=== PATIENT | male | born 1995 | race Hispanic/Latino ===

== ENCOUNTER 2017-09-01 19:42 | Emergency (ER) | payer OTHER ==
[~2017-09-01] VITALS: Ht 165.1 cm; Wt 72.6 kg
[2017-09-01] MEDS ORDERED: ONDANSETRON HCL INJ 2 MG/ML VIAL IV STA (19:47)
[2017-09-01] MEDS ORDERED: SODIUM CHLORIDE 0.9% 1000ML 1,000 ML IV ONE (20:00)
[2017-09-01 20:10] LABS: BASOPHILS % 0.2 % (0.0-1.0); HEMATOCRIT 41.8 % (38.2-49.6); HEMOGLOBIN 14.9 g/dL (14.0-18.0); LYMPHOCYTES % 5.1 % (18.0-39.1); MEAN CORPUSCULAR HEMOGLOBIN 33.2 pg (28-32); MEAN CORPUSCULAR HGB CONC 35.6 g/dL (31-35); MEAN CORPUSCULAR VOLUME 93.1 fL (81-99); MONOCYTES # (AUTO) 1.6 (0.2-0.8); MONOCYTES % 8.2 % (4.4-11.3); NEUTROPHILS # (AUTO) 16.7 (2.1-6.9); NEUTROPHILS % 85.9 % (38.7-80.0); PLATELET COUNT 182 x10e3/uL (140-360); RED BLOOD COUNT 4.49 x10e6/uL (4.3-5.7); RED CELL DISTRIBUTION WIDTH 11.6 % (11.7-14.4)
[2017-09-01 20:29] LABS: ALANINE AMINOTRANSFERASE 21 IU/L (0-55); ALBUMIN 4.3 g/dL (3.5-5.0); ALBUMIN/GLOBULIN RATIO 1.3 (0.8-2.0); ALKALINE PHOSPHATASE 84 IU/L (40-150); ANION GAP 14.2 mmol/L (8-16); BLOOD UREA NITROGEN 9 mg/dL (7-26); BUN/CREATININE RATIO 8 (6-25); CALCIUM 9.1 mg/dL (8.4-10.2); CARBON DIOXIDE 22 mmol/L (22-29); CHLORIDE 103 mmol/L (98-107); CREATININE, SERUM 1.19 mg/dL (0.72-1.25); EST GLOMERULAR FILTRATION RATE > 60 ML/MIN (60-); GLUCOSE 137 mg/dL (74-118); POTASSIUM 3.2 mmol/L (3.5-5.1); SODIUM 136 mmol/L (136-145)
[2017-09-01 21:15] LABS: NEUTROPHILS % (MANUAL) 92 % (40-74)
[2017-09-01 21:16] LABS: LYMPHOCYTES % (MANUAL) 4 % (19-48); MONOCYTES % (MANUAL) 4 % (3.4-9.0); PLATELET ESTIMATE ADEQUATE; PLATELET MORPHOLOGY COMMENT NORMAL; RBC MORPHOLOGY COMMENT NORMAL
[2017-09-01 21:23] VITALS: BP 135/54
== END 2017-09-01 21:24 | disposition home or self-care (01) ==
LOC: ER 19:42
DX: R50.9 Fever, unspecified (principal); R11.2 Nausea with vomiting, unspecified; R19.7 Diarrhea, unspecified; R10.84 Generalized abdominal pain
CPT/HCPCS: 36415; 80053; 85025; 87400; 99284; J2405; J7030

== ENCOUNTER 2017-09-11 00:07 | Emergency (ER) | payer OTHER ==
[~2017-09-11] VITALS: Ht 165.1 cm; Wt 72.6 kg
--- OUTSIDE RECORDS SUMMARY | 2017-09-11 00:10 | XMS REPORT | Continuity of Care Document ---
Author Author [facility] Organization [facility] Address [address] [place] [address] Phone Unavailable Care Team Providers Care Framing Manager Name Role Phone NO, PCP PCP Unavailable Advance Directives No advance directive information available. Problems No problem information available. Medications No medication information available. Social History Smoking Status Start Date Stop Date Current every day smoker Hospital Discharge Instructions No hospital discharge instruction information available. Plan of Care Discharge Date 09/01/17 9:24pm Disposition HOME, SELF-CARE Condition at Discharge Stable Instructions/Education Provided Vomiting - Adult Forms Provided Work/School Excuse Prescriptions See Medication Section Referrals JOVANI COSME MD Address: [address] [place] [id number] Additional Instructions/Education FOLLOW UP WITH YOUR PRIMARY CARE DOCTOR IN 3 DAYS ADMINISTER MEDICATIONS ORDERED BY DOCTOR DRINK PLENTY OF FLUIDS - CLEAR LIQUIDS ONLY FOR THE NEXT 24 HOURS - ADVANCE DIET TOLERATED RETURN IF SYMPTOMS WORSEN Functional Status No functional status information available. Allergies, Adverse Reactions, Alerts No known allergies. Immunizations No immunization information available. Vital Signs Acute Vital Signs Vital Response Date/Time Temperature (Fahrenheit) 98.7 degrees F (97.6 - 99.5) 09/01/2017 9:23pm Pulse Pulse Rate (adult) 74 bpm (60 - 90) 09/01/2017 9:23pm Respiratory Rate 18 bpm (12 - 24) 09/01/2017 9:23pm Blood Pressure 135/54 mm Hg 09/01/2017 9:23pm Height 5 ft 5 in 09/01/2017 7:47pm Weight 160 lb 09/01/2017 7:47pm Body Mass Index 26.6 kg/m^2 09/01/2017 7:47pm Results Laboratory Results Test Name Result Units Flags Reference Collection Date/Time Result Date/ Time Comments White Blood Count 19.36 x10e3/uL H 4.8-10.8 09/01/2017 8:04pm 2017 8:11pm Red Blood Count 4.49 x10e6/uL 4.3-5.7 09/01/2017 8:04pm 09/01/2017 8: 11pm Hemoglobin 14.9 g/dL 14.0-18.0 09/01/2017 8:04pm 09/01/2017 8:11pm Hematocrit 41.8 % 38.2-49.6 09/01/2017 8:04pm 09/01/2017 8:11pm Mean Corpuscular Volume 93.1 fL 81-99 09/01/2017 8:04pm 09/01/2017 8: 11pm Mean Corpuscular Hemoglobin 33.2 pg H 28-32 09/01/2017 8:04pm 2017 8:11pm Mean Corpuscular Hemoglobin Concent 35.6 g/dL H 31-35 09/01/2017 8:04pm 09/01/2017 8:11pm Red Cell Distribution Width 11.6 % L 11.7-14.4 09/01/2017 8:04pm 2017 8:11pm Platelet Count 182 x10e3/uL 140-360 09/01/2017 8:04pm 09/01/2017 8: 11pm Neutrophils (%) (Auto) 85.9 % H 38.7-80.0 09/01/2017 8:04pm 09/01/2017 8 :11pm Lymphocytes (%) (Auto) 5.1 % L 18.0-39.1 09/01/2017 8:04pm 09/01/2017 8: 11pm Monocytes (%) (Auto) 8.2 % 4.4-11.3 09/01/2017 8:04pm 09/01/2017 8: 11pm Eosinophils (%) (Auto) 0.0 % 0.0-6.0 09/01/2017 8:04pm 09/01/2017 8: 11pm Basophils (%) (Auto) 0.2 % 0.0-1.0 09/01/2017 8:04pm 09/01/2017 8:11pm IM GRANULOCYTES % 0.6 % 0.0-1.0 09/01/2017 8:04pm 09/01/2017 8:11pm Neutrophils # (Auto) 16.7 H 2.1-6.9 09/01/2017 8:04pm 09/01/2017 8: 11pm Lymphocytes # (Auto) 1.0 1.0-3.2 09/01/2017 8:04pm 09/01/2017 8:11pm Monocytes # (Auto) 1.6 H 0.2-0.8 09/01/2017 8:04pm 09/01/2017 8:11pm Eosinophils # (Auto) 0.0 0.0-0.4 09/01/2017 8:04pm 09/01/2017 8:11pm Basophils # (Auto) 0.0 0.0-0.1 09/01/2017 8:04pm 09/01/2017 8:11pm Absolute Immature Granulocyte (auto 0.11 x10e3/uL H 0-0.1 09/01/2017 8: 04pm 09/01/2017 8:11pm Neutrophils % (Manual) 92 % H 40-74 09/01/2017 8:04pm 09/01/2017 9:16pm Lymphocytes % (Manual) 4 % L 19-48 09/01/2017 8:04pm 09/01/2017 9:16pm Monocytes % (Manual) 4 % 3.4-9.0 09/01/2017 8:04pm 09/01/2017 9:16pm Platelet Estimate ADEQUATE 09/01/2017 8:04pm 09/01/2017 9:16pm Platelet Morphology Comment NORMAL 09/01/2017 8:04pm 09/01/2017 9: 16pm Red Cell Morphology Comment NORMAL 09/01/2017 8:04pm 09/01/2017 9: 16pm Sodium Level 136 mmol/L 136-145 09/01/2017 8:04pm 09/01/2017 8:32pm Potassium Level 3.2 mmol/L L 3.5-5.1 09/01/2017 8:04pm 09/01/2017 8: 32pm Chloride Level 103 mmol/L 98-107 09/01/2017 8:04pm 09/01/2017 8:32pm Influenza Virus Types A,B Antigen NEGATIVE NEGATIVE 09/01/2017 7:20pm 09/01/2017 8:19pm Carbon Dioxide Level 22 mmol/L 22-09/01/2017 8:0409/01/2017 8: 32pm Anion Gap 14.2 mmol/L 8-16 09/01/2017 8:0409/01/2017 8:32pm Blood Urea Nitrogen 9 mg/dL 7-09/01/2017 8:0409/01/2017 8:32pm Creatinine 1.19 mg/dL 0.72-1.25 09/01/2017 8:0409/01/2017 8:32pm BUN/Creatinine Ratio 8 6-09/01/2017 8:0409/01/2017 8:32pm Estimat Glomerular Filtration Rate > 60 ML/MIN 60- 09/01/2017 8:04 8:32pm Ranges were taken from the National Kidney Disease Education Program and the [employer] literature. Reference ranges: 60 or greater: Normal 16-59 (for 3 consecutive months): Chronic kidney disease 15 or less: Kidney failure Glucose Level 137 mg/dL H 74-118 09/01/2017 8:0409/01/2017 8:32pm Calcium Level 9.1 mg/dL 8.4-10.2 09/01/2017 8:0409/01/2017 8:32pm Total Bilirubin 0.9 mg/dL 0.2-1.2 09/01/2017 8:0409/01/2017 8:32pm Aspartate Amino Transf (AST/SGOT) 19 IU/L 5-34 09/01/2017 8:042017 8:32pm Alanine Aminotransferase (ALT/SGPT) 21 IU/L 0-55 09/01/2017 8:04 8:32pm Total Protein 7.6 g/dL 6.5-8.1 09/01/2017 8:0409/01/2017 8:32pm Albumin 4.3 g/dL 3.5-5.0 09/01/2017 8:0409/01/2017 8:32pm Globulin 3.3 g/dL 2.3-3.5 09/01/2017 8:04pm 09/01/2017 8:32pm Albumin/Globulin Ratio 1.3 0.8-2.0 09/01/2017 8:0409/01/2017 8: 32pm Alkaline Phosphatase 84 IU/L 40-150 09/01/2017 8:04pm 09/01/2017 8: 32pm Procedures No procedure information available. Encounters Encounter Location Arrival/Admit Date Discharge/Depart Date Attending Provider Departed Emergency Room [facility] 09/01/17 7:42pm 9:24pm WILBUR CHILD MD
[2017-09-11] MEDS ORDERED: FAMOTIDINE 20 MG/2 ML VIAL IV STA (00:17)
[2017-09-11] MEDS ORDERED: METHYLPREDNISOLONE SOD SUCC 125 MG/2ML VIAL ONE (00:21)
[2017-09-11] MEDS ORDERED: DIPHENHYDRAMINE HCL INJ 1 ML ONE (00:21)
[2017-09-11] MEDS ORDERED: FAMOTIDINE 20 MG/2 ML VIAL IV ONE (00:21)
[2017-09-11] MEDS ORDERED: METHYLPREDNISOLONE SOD SUCC 125 MG/2ML VIAL IV ONE (00:30)
[2017-09-11] MEDS ORDERED: DIPHENHYDRAMINE HCL INJ 50 MG/ML VIAL IV ONE (00:30)
[2017-09-11] MEDS ORDERED: SODIUM CHLORIDE 0.9% 1000ML 1,000 ML IV ONE (00:45)
== END 2017-09-11 01:42 | disposition home or self-care (01) ==
LOC: ER 00:07
DX: L50.0 Allergic urticaria (principal); T78.40XA Allergy, unspecified, initial encounter
CPT/HCPCS: 99283; J1200; J2930